=== PATIENT | male | born 1970 | race Caucasian/White ===

== ENCOUNTER → 2024-05-06 | Outpatient (CLI) | payer MEDICARE, MEDICAID, SELFPAY ==
--- NOTE | 2024-05-06 12:40 | XR_ITS ---
Examination: Bone densitometry Date and time of exam:May 06, 2024 1300 hours INDICATIONS: 54-year-old male with personal history osteoporosis, family history osteoporosis, mother Technique: Lumbar spine and hip total bone mineralization values of an calculated. Peak reference and age match control results have been displayed. Findings: Lumbar spine total bone mineralization is0.841 gm/cm2. This is 2.3 standard deviations below peak reference. This is 1.8 standard deviations below age-matched controls. Hip total bone mineralization is 0.800 gm/cm2 This is 1.5 standard deviations below peak reference. This is 1.2 standard deviations below age-matched controls Impression: There is osteopenia based on lumbar spine measurements. There is osteopenia based on hip measurements Lumbar mineralization is decreased 2.0% compared with February 14, 2019 Hip mineralization is decreased 15.0% compared with February 14, 2019
== END | disposition home or self-care (01) ==
PROVIDERS: PCP Family Medicine; Referring Provider Family Medicine; Visit Provider Family Medicine
DX: M85.89 Other specified disorders of bone density and structure, multiple sites (principal)
CPT/HCPCS: 77080

== ENCOUNTER 2025-01-26 13:46 | Emergency (ER) | payer MEDICARE, MEDICAID, SELFPAY ==
--- NOTE | 2025-01-26 14:09 | PD.EDRME ---
Rapid Medical Screening Exam RME Arrival date/time: 01/26/25 13:46 This is a case of 54-year-old male with history of hemorrhoid came here in the emergency room due to heavy rectal bleeding patient had a hemorrhoidectomy last Sunday due to severe pain and bleeding this patient decided to start consult her in the emergency room Chief Complaint: General Adult/Misc Complain Time Seen by Provider: 01/26/25 14:04 Exam: Abdominal exam benign nonsurgical no guarding no rebound no rigidity Clinical Impression: Rectal bleeding
[2025-01-26 14:18] VITALS: BP 128/86; PULSE 89; RESP 18; TEMP 37; O2SAT 99; BMI 25.9
[2025-01-26 14:40] LABS: Basophils # (Auto) 0.1 Thou/mm3 (0.0-0.2); Basophils % (Auto) 1 % (0-2.5); Eosinophils # (Auto) 0.1 Thou/mm3 (0.0-0.5); Eosinophils % (Auto) 2 % (0-10); Hematocrit 42.3 % (41.0-53.0); Hemoglobin 14.8 g/dL (13.5-16.0); Immature Granulocytes Auto 0.01 Thou/mm3 (0.00-0.00); Lymphocytes # (Auto) 1.2 Thou/mm3 (1.0-4.8); Lymphocytes % (Auto) 20 % (10-50); Mean Corpuscular HGB Conc 35.0 g/dl (31.0-37.0); Mean Corpuscular Hemoglobin 35.2 pg (25.0-35.0); Mean Corpuscular Volume 101 fL (80-100); Monocytes # (Auto) 0.7 Thou/mm3 (0.0-0.8); Monocytes % (Auto) 11 % (0-12); Neutrophils # (Auto) 4.1 Thou/mm3 (1.8-7.7); Neutrophils % (Auto) 66 % (37-80); Nucleated Red Blood Cell # 0.00 Thou/mm3 (0.00-0.00); Nucleated Red Blood Cell % 0 /100 WBC (0); Platelet Count 209 Thou/mm3 (140-440); RDW Standard Deviation 49.3 fL (35.1-43.9); Red Blood Count 4.21 Miln/mm3 (4.50-5.90); White Blood Count 6.2 Thou/mm3 (3.8-10.6)
[2025-01-26] MEDS: HYDROcodone/APAP 5/325 TABLET 1 TAB PO (14:52)
[2025-01-26 14:57] LABS: Alanine Aminotransferase 23 U/L (10-49); Albumin, Serum 4.8 gm/dL (3.5-5.0); Albumin/Globulin Ratio 2.1 (1.2-2.2); Alkaline Phosphatase 99 U/L (46-116); Anion Gap 8 (7-16); Aspartate Amino Transferase 21 U/L (0-34); BUN/Creatinine Ratio 8 Ratio (12-20); Bilirubin,Total 0.7 mg/dL (0.3-1.2); Blood Urea Nitrogen 6 mg/dL (9-23); Calcium 9.4 mg/dL (8.3-10.6); Calcium (Corrected) 9.4 mg/dL (8.5-10.1); Carbon Dioxide 28.6 mMol/L (20.0-31.0); Chloride 104 mMol/L (98-107); Creatinine (Component) 0.8 mg/dL (0.6-1.3); Estimated Creatinine Clearance 80.8 mL/min (>60); Globulin 2.3 gm/dL (2.3-3.5); Glucose 99 mg/dL (74-106); Osmolality,Calculated 278 (275-295); Potassium 3.9 mMol/L (3.4-5.1); Sodium 141 mMol/L (136-145); Total Protein 7.1 gm/dL (5.7-8.2); eGFR > 60 See Note
--- NOTE | 2025-01-26 15:37 | PD.EDADULT ---
ED General RME/HPI General Chief complaint: General Adult/Misc Complain Stated complaint: BLEEDING/PAIN 12/12; HEMORRHOIDECTOMY LAST . Time Seen by Provider: 01/26/25 14:04 Arrival date/time: 01/26/25 13:46 Limitations: no limitations RME / HPI RME / HPI narrative: 01/26/25 13:46 This is a case of 54-year-old male with history of hemorrhoid came here in the emergency room due to heavy rectal bleeding patient had a hemorrhoidectomy last Sunday due to severe pain and bleeding this patient decided to start consult her in the emergency room DR. ABHILASH GARCIA ED EVALUATION 54 year old male with history of early dementia, s/p CABG, s/p aorta repair surgery for an aneurysm, hypertension, hyperlipidemia, bipolar disorder, and prior hemorrhoidectomy presents to the ED for rectal bleeding and pain after hemorrhoidectomy performed [address] Perdomo. States the bleeding and pain today is different than previous hemorrhoidectomy which concerned him. No abdominal pain. No changes in bowel habits. Patient states he is on a pain contract with PCP and currently on 100mcg Fentanyl patches and 10mg of Oxycodone which he has taken with not much improvement. No other associated symptoms or complaints reported. Exam: Abdominal exam benign nonsurgical no guarding no rebound no rigidity Impression: Rectal bleeding Related Data Home Medications ?Medication ?Instructions ?Recorded ?Confirmed aspirin 81 mg chewable tablet 81 mg PO QDAY ##0 01/29/17 02/23/23 clonazepam 2 mg tablet (Klonopin) 2 mg PO BID #0 tabs 01/29/17 02/23/23 Held on 02/23/23. Instructions: Resume on 02/24/23. HOLD FOR 24 HOURS lamotrigine 200 mg tablet 100 mg PO BID #0 tabs 01/29/17 02/23/23 (Lamictal) atorvastatin 80 mg tablet 80 mg PO QDAY 07/02/20 02/23/23 tizanidine 4 mg tablet 4 mg PO TID PRN Spasms 07/02/20 02/23/23 Held on 02/23/23. Instructions: Resume on 02/24/23. HOLD FOR 24 HOURS esomeprazole magnesium 40 mg 40 mg PO QDAY 05/16/21 02/23/23 capsule,delayed release (Nexium) fluticasone fur. 200 mcg-umeclid 1 inh inhalation DAILY 02/23/23 02/23/23 62.5 mcg-vilant 25 mcg inhalat.powder (Trelegy Ellipta) fluticasone propionate 50 1 spray intranasal DAILY 02/23/23 02/23/23 mcg/actuation nasal spray,suspension metoprolol succinate 50 mg 50 mg PO DAILY 02/23/23 02/23/23 tablet,extended release 24 hr oxycodone-acetaminophen 10 mg-325 1 tab PO 5 TIMES DAILY PRN Pain 02/23/23 02/23/23 mg tablet Held on 02/23/23. Instructions: Resume on 02/24/23. HOLD FOR 24 HOURS rivaroxaban 10 mg tablet (Xarelto) 10 mg PO DAILY 02/23/23 02/23/23 tiotropium 2.5 mcg-olodaterol 2.5 2 inh inhalation DAILY 02/23/23 02/23/23 mcg/actuation mist for inhalation (Stiolto Respimat) vortioxetine 10 mg tablet 10 mg PO DAILY 02/23/23 02/23/23 (Trintellix) Allergies Allergy/AdvReac Type Severity Reaction Status Date / Time ketorolac Allergy Intermediate Anxiety Verified 01/26/25 13:50 adhesive tape Allergy Mild Rash Verified 01/26/25 13:50 Review of Systems Review of Systems Systems Reviewed: All systems reviewed, normal except as documented Past Medical History Past Medical History NEUROLOGIC: Positive Neurological Disorders and Migraine CARDIAC: Positive Cardiac Disorders, Cardiac Arrhythmia, Angina, Coronary Artery Disease (1 stent 2007) and Aneurysm (open heart surgerey with 3 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) RESPIRATORY: Positive Chronic Obstructive Pulmonary Disease (COPD) (uses home O2) and Pneumonia GASTROINTESTINAL: Positive Gastrointestinal Disorders, Gall Bladder Disease (cholecystectomy), Diverticulitis, Hemorrhoids (s/p hemorrhoidectomy) and Obesity GENITOURINARY: Positive Kidney Stones MUSCULOSKELETAL: Positive Musculoskeletal Disorders, Arthritis (2 different types of arthritis) and Fractures (left leg, right knee acl) PSYCHO/SOCIAL: Positive Bipolar Disorder, Depression (manic depressive) and Anxiety OTHER HISTORY: Positive Hospitalization, Shingles (vaccinated) and Chicken Pox Family History FAMILY HISTORY: Positive Family Psychiatric Problems, Family Cardiac Disorders and Family Cancer Surgical History SURGICAL: Positive Cardiac Surgery, Open Heart Surgery, Coronary Artery Bypass Graft, Coronary Stent, Cardiac Catheterization, Angiogram, Oral Surgery (bone spurs to jaw before dentures) and Abdominal Surgery Social History SMOKING STATUS: Current every day smoker SUBSTANCE USE: marijuana (edibles, trying to cut down on them) ED Exam General Limitations: Present no limitations General appearance: Present alert and in no apparent distress Head Head exam: Present atraumatic and normocephalic Eye Eye exam: Present normal appearance and EOMI ENT ENT exam: Present normal exam, normal oropharynx and mucous membranes moist Neck Neck exam: Present normal inspection and full ROM Chest Chest inspection: Present normal inspection Respiratory Respiratory exam: Absent respiratory distress Cardiovascular Cardiovascular exam: Present regular rate, normal rhythm and normal heart sounds Abdominal Exam Abdominal exam: Present distention; Absent tenderness Extremities Exam Extremities exam: Present normal inspection Neurological Exam Neurological exam: Present alert and other (No focal neurodeficits) Psychiatric Psychiatric exam: Present normal affect and normal mood Skin Skin exam: Present warm, dry, intact and normal color Course Quality Measures none Orders Category Date Time Status CBC Stat Lab 01/26/25 14:20 Completed CMP [Comprehensive Metabolic Panel] Stat Lab 01/26/25 14:20 Completed HYDROcodone*/APAP 5/325 [[place] 5/325] Med 01/26/25 14:31 Discontinued 1 tab PO X1 ONE Vital Signs Vital signs: Vital Signs Temperature 98.6 F 01/26/25 14:18 Pulse Rate 89 01/26/25 14:18 Respiratory Rate 18 01/26/25 14:18 Blood Pressure 128/86 H 01/26/25 14:18 Pulse Oximetry (%) 99 01/26/25 14:18 Oxygen Delivery Method Room Air 01/26/25 14:18 Pulse ox is 99% on room air which is adequate. Discharge Plan Plan Patient Disposition: HOME (Self Care) Prescriptions/Referrals Prescriptions/Med Rec: No Action lamotrigine [Lamictal] 200 MG tablet 100 mg PO BID Qty: 0 clonazepam [Klonopin] 2 MG tablet 2 mg PO BID Qty: 0 aspirin 81 MG tablet,chewable 81 mg PO QDAY Qty: 0 atorvastatin 80 mg tablet 80 mg PO QDAY tizanidine 4 mg Tablet 4 mg PO TID PRN (Reason: Spasms) esomeprazole magnesium [Nexium] 40 mg Capsule,Delayed Release(Dr/Ec) 40 mg PO QDAY metoprolol succinate 50 mg tablet extended release 24 hr 50 mg PO DAILY oxycodone-acetaminophen 10-325 mg tablet 1 tab PO 5 TIMES DAILY PRN (Reason: Pain) fluticasone propionate 50 mcg/actuation spray,suspension 1 spray INTRANASAL DAILY Xarelto 10 mg tablet 10 mg PO DAILY Trintellix 10 mg tablet 10 mg PO DAILY Stiolto Respimat 2.5-2.5 mcg/actuation mist 2 inh INHALATION DAILY Trelegy Ellipta 200-62.5-25 mcg blister with device 1 inh INHALATION DAILY Problem List Clinical Impression: Rectal bleed Patient/Caregiver Discharge Instructions Education Materials: Understanding Rectal Bleeding Additional Instructions: Presents with your labs today did not identify any evidence of clinically significant anemia, your metabolic profile was normal. You are reassured by Dr. Perdomo's evaluation and the recommends that we discharge you home and that you follow-up in clinic. Please follow-up with him return immediately for worsening symptoms or any other symptom of concern. Print Language: [place] Stand Alone Forms: [facility] Award Info., Patient Portal Info Letter MDM Narrative MDM hospital course (for use when minimal MDM required): Pamela Henderson am scribing for and in the presence of Dr. Yates. Patient is a 54-year-old male with concerns for rectal pain after hemorrhoidectomy. Vital signs and exam as listed. Concern for postsurgical pain, less likely infection, given patient without fever, no discharge from his rectum. Patient without gross bleeding. Ordered labs, patient surgeon will come and evaluate the patient. Labs with any acute hematologic or metabolic abnormality. 1535: Dr. Perdomo saw patient at bedside, examining patient surgical site, patient is progressing appropriately. States that patient can be dc'd to home. Updated patient, patient in agreement. States that his pain is different than his prior hemorrhoidectomy however the procedure for which it was done is different this time around which is likely contributing to his pain. Patient discharged home he is hemodynamically stable not distressed. Patient does have a pain management provider will help him with his symptoms. Clinical Information Provided by: patient Medical Records reviewed [facility] Meds/Rx considered, not ordered None Labs/Rad/Tests considered, not ordered None Chronic Illness/Social Conditions which may negatively complicate care or outcome(s)-explain: None or not applicable EKG EKG not done Labs Labs: see narrative above Imaging Imaging interpretation: none Medication Administration(s) Medication Administration History Discontinued Medications Hydrocodone Bitart/Acetaminophen (Hydrocodone/[place]ap 5/325 Tablet) 1 tab PO X1 ONE Stop: 01/26/25 14:32 Last Admin: 01/26/25 14:52 Dose: 1 tab Documented By: OA See above Diagnosis Differential Diagnosis ED Complaint MDM: Rectal pain Diagnoses ruled out and/or further discussions: Rectal bleed
== END 2025-01-27 16:03 | disposition home or self-care (01) ==
PROVIDERS: Nurse Practitioner Family; Emergency Provider Emergency Medicine
DX: K62.5 Hemorrhage of anus and rectum (principal); Z98.890 Other specified postprocedural states
CPT/HCPCS: 36415; 80053; 85025; 99282; A9270